=== PATIENT | male | born 1935 | race Asian ===

== ENCOUNTER → 2020-04-04 | Outpatient (CLI) | payer MEDICARE, OTHER ==
[~2020-04-04] MED LIST: ALLO100T PO; ASPI-999 PO; ATOR80TA76 PO; CIPR-225 PO; HYDR-3870 PO; ISOS120T9 PO; LOSA100T57 PO; METO50TA7 PO; MULT-35 PO; NIFE60TA11 PO; OMG1KC PO; PHEN-640 PO; RANO500T3 PO; TAMS0.4C2 PO; UBID1CAP53 PO
--- NOTE | 2020-04-04 14:36 | Diagnostic Imaging Report ---
Indication: Hematuria Findings: There are multiple adjacent stones in the right upper quadrant which may be within the renal pelvis and/or proximal ureter, the largest is the most proximal/superior of these stones measuring 7.8 mm in diameter. The bowel gas pattern unremarkable. Impression: Calcifications in the right upper quadrant, suspicious for urolithiasis, may be within the renal pelvis and/or proximal ureter. If symptomatic, consider CT as further evaluation. Dictated by: Dictated on workstation # [id number]
--- NOTE | 2020-04-04 14:42 | Diagnostic Imaging Report ---
PROCEDURE: CT abdomen and pelvis without contrast. TECHNIQUE: Multiple contiguous axial images were obtained through the abdomen and pelvis without the use of intravenous contrast. Auto Exposure Controls were utilized during the CT exam to meet ALARA standards for radiation dose reduction. INDICATION: Flank pain, hematuria. There are multiple stones in the proximal right ureter. There are 3 adjacent calculi at the level of the L3-L4 disc space. The most proximal of these has a long axis cephalocaudal 5.7 mm. The most distal has its maximal dimension in the transverse orientation of 6.5 mm. These result in mild proximal hydronephrosis and mild perinephric and periureteric edema. Punctate 1 mm left renal calculus is present. There are additional intrarenal stones in the right kidney, the largest in an upper pole calyx is a 2 to 3 mm. An exophytic nodule off the mid to lower 3rd of the right kidney is indeterminate, solid versus cystic 1.6 cm nonemergent sonographic correlation recommended. There is an exophytic cyst off the lower pole the left kidney. There is a cyst in the right hepatic lobe as well as lateral sector left lobe, the gallbladder negative. Spleen, adrenals and pancreas unremarkable. There is no bowel obstruction or viscus perforation no ascites, abscess, hematoma or acute fluid collection. There is no appendicitis or diverticulitis. IMPRESSION: 1. Bilateral nephrolithiasis, multiple prominent proximal right ureteral stones with only mild upstream hydronephrosis. Calculus dimensions above. 2. No other acute-appearing abnormality. 3. Bilateral renal cysts noted, likely right renal exophytic cyst present however does not appear clearly simple, nonemergent sonographic correlation recommended. Dictated by: Dictated on workstation # [id number]
== END ==
LOC: RAD 13:59
PROVIDERS: ATTEND Urology
DX: N13.2 Hydronephrosis with renal and ureteral calculous obstruction (principal); N28.1 Cyst of kidney, acquired; R31.9 Hematuria, unspecified
CPT/HCPCS: 74018; 74176

== ENCOUNTER 2020-04-25 05:45 | Outpatient (RCR) | payer MEDICARE ==
[~2020-04-25] VITALS: Ht 162.6 cm; Wt 71.8 kg
[2020-04-25] MEDS ORDERED: NIFE-24 PO (12:01)
[2020-04-25] MEDS ORDERED: ROSU40TA23 PO (12:01)
[2020-04-25] MEDS ORDERED: TMSL.4C PO (12:01)
[2020-04-25] MEDS ORDERED: MULT-1136 PO (12:01)
== END 2020-04-25 12:27 | disposition home or self-care (01) ==
LOC: PREOP 05:45
PROVIDERS: ATTEND Urology
DX: Z01.812 Encounter for preprocedural laboratory examination (principal); N20.1 Calculus of ureter

== ENCOUNTER → 2020-04-30 | Outpatient (CLI) | payer MEDICARE ==
[~2020-04-30] MED LIST changes: +MULT-1136 PO; +NIFE-24 PO; +ROSU40TA23 PO; +TMSL.4C PO
--- NOTE | 2020-04-30 14:53 | Diagnostic Imaging Report ---
INDICATION: Follow-up renal calculi. COMPARISON: 04/04/2020 FINDINGS: Single supine radiographic view of the abdomen was obtained and again demonstrates two separate calculi projecting over the right psoas muscle. These do appear to have partially migrated distally when compared to 04/04/2020. Calculi now project over the intervertebral disc space of L3-L4 and superior endplate of L4. This is in comparison to over the level of the L3 vertebral body previously. Additional right renal calculus is again identified. Small bowel loops are nondistended. There is no large collection of free intraperitoneal air. Moderate air and stool is noted scattered throughout the colon. IMPRESSION: 1. Slight interval distal migration of right ureteral calculi. 2. Right renal calculus. 3. Moderate colonic air and stool. Please correlate for constipation. Dictated by: Dictated on workstation # [id number]
== END ==
LOC: RAD 14:04
PROVIDERS: ATTEND Urology
DX: N20.2 Calculus of kidney with calculus of ureter (principal)
CPT/HCPCS: 74018

== ENCOUNTER 2020-05-08 06:03 | Day surgery (SDC) | payer MEDICARE ==
[2020-05-08] VITALS (9 sets, daily range): BP systolic 115–140; BP diastolic 75–89
[~2020-05-08] VITALS: Ht 162 cm; Wt 71.8 kg
[2020-05-08] MEDS ORDERED: cefTRIAXone FOR IV USE 1,000 MG in WATER (STERILE) FOR INJECTION 10 ML IV ONE (06:15)
[2020-05-08] MEDS: LACTATED RINGERS 1,000 ML IV PRN ×2 (06:47→07:40)
[2020-05-08] MEDS ORDERED: fentaNYL INJECTION 100 MCG/2 ML AMP ONE (06:56)
[2020-05-08] MEDS ORDERED: SEVOFLURANE (ULTANE) 15 ML INHAL SOLN ONE (06:56)
[2020-05-08] MEDS ORDERED: ONDANSETRON 4 MG/2 ML (SDV) Z0FRAN ONE (06:56)
[2020-05-08] MEDS ORDERED: KETOROLAC 30 MG/ML VIAL ONE (06:56)
[2020-05-08] MEDS ORDERED: LIDOCAINE PF 2% 5 ML (XYLOCAINE) VIAL ONE (06:56)
[2020-05-08] MEDS ORDERED: FUROSEMIDE 40 MG/4 ML INJ (LASIX) ONE (06:56)
[2020-05-08] MEDS ORDERED: proPOfol 200 MG/20 ML (DIPRIVAN) VIAL IV ONE (06:56)
--- NOTE | 2020-05-08 07:05 | Progress Note-Pre Operative ---
Pre-Operative Progress Note H&P Reviewed The H&P was reviewed, patient examined and no changes noted. Date Seen by Provider: May 08, 2020 Time Seen by Provider: 07:04 Date H&P Reviewed: May 08, 2020 Time H&P Reviewed: 07:05 Pre-Operative Diagnosis: RT URETERAL STONES ARMANDO YEE MD May 08, 2020 07:05
--- NOTE | 2020-05-08 07:16 | Progress Note-Post Operative ---
Post-Operative Progess Note Surgeon (s)/Vacuum Bottle Assembler (s) Surgeon ARMANDO YEE MD Vacuum Bottle Assembler: NONE Pre-Operative Diagnosis RT URETERAL STONES Post-Operative Diagnosis SAME Procedure & Operative Findings Date of Procedure 05/08/20 Procedure Performed/Findings RT ESWL Anesthesia Type GENERAL Estimated Blood Loss Estimated blood loss (mL): NONE Specimens/Packing Specimens Removed NONE Packing: NONE ARMANDO YEE MD May 08, 2020 07:16
--- NOTE | 2020-05-08 07:18 | Discharge Inst-Urology ---
Discharge Inst-Urology Reconcile Patient Problems Problems Reviewed?: Yes Final Diagnosis RT PROXIMAL URETERAL STONES Patient Instructions/Follow Up Plan/Assessment/Instructions Please make appointment to been seen in office next Thursday, KUB prior to it. KUB on way home Stay off ASA Post ESWL instructions Increase oral fluids for 48 hours and then as needed. Diet and Activity as tolerated. If questions or concerns contact your physician Or seek help at emergency department. ARMANDO YEE MD May 08, 2020 07:18
--- NOTE | 2020-05-08 07:25 | Diagnostic Imaging Report ---
INDICATION: Right flank pain KUB 6:37 AM There are 2 calculi in the right ureteral distribution one measuring 8 mm in diameter at the level of L3-L4 disc space and the other measuring 7 mm in diameter at the L4-L5 disc space level. Bowel gas pattern is normal. IMPRESSION: There are 2 right ureteral calculi. The more distal has migrated distally approximately 2 cm compared to 04/30/2020. Dictated by: Dictated on workstation # [id number]
[2020-05-08] MEDS ORDERED: GLYCOPYRROLATE 0.2 MG/ML (ROBINUL) 2 ML VIAL ONE (07:28)
[2020-05-08] MEDS ORDERED: ONDANSETRON 4 MG/2 ML (SDV) Z0FRAN IVP PRN (08:15)
[2020-05-08] MEDS ORDERED: morphine INJ 10 MG/ML 1ML (SYR OR VIAL) IVP ONE (08:15)
[2020-05-08] MEDS ORDERED: TRM50T PO (08:45)
[2020-05-08] MEDS ORDERED: NITR-65 PO (08:45)
[2020-05-08] MEDS ORDERED: TMSL.4C PO (08:45)
--- NOTE | 2020-05-08 09:59 | Diagnostic Imaging Report ---
EXAMINATION: Abdomen, 1 view. HISTORY: POST ESWL. COMPARISON: Abdominal radiograph 05/08/2020. FINDINGS: There is a 0.8 cm calcification which appears to have migrated cephalad now projecting over the expected location of the proximal ureter. Stable appearance of the 1.0 cm calculus within the mid right ureter compared to 05/08/2020. There is moderate amount of gas and stool throughout the colon. Nonobstructive bowel gas pattern. No radiopaque foreign body. Degenerative changes of the hips and spine. Osseous structures are otherwise intact. IMPRESSION: 1. Stable 1.0 cm mid right ureteral calculus. 2. Cephalad migration of the 0.8 cm right ureteral calculus now within the proximal right ureter. Dictated by: Dictated on workstation # [id number]
--- NOTE | 2020-05-08 10:58 | OPERATIVE REPORT ---
DATE OF SERVICE: 05/08/2020 PREOPERATIVE DIAGNOSIS: Right proximal ureteral stones. POSTOPERATIVE DIAGNOSIS: Right proximal ureteral stones. OPERATION PERFORMED: Right ESWL. SURGEON: Сергей Yee MD. ANESTHESIA: General. COMPLICATIONS: None. DESCRIPTION OF PROCEDURE: Under satisfactory general anesthesia, the patient in supine position on the ESWL table, we first localized the lower proximal right ureteral stone and delivered shocks at kV of 9 with a total of 3000 shocks. We wanted to concentrate on one stone at a time because of their size and hardness. The stone seemed to have fragmented well. The patient received 40 mg of Lasix and 15mg of Toradol IV at the end of the procedure. He tolerated the procedure and anesthesia well and was sent to recovery room in a stable condition. PLAN: We will see how he recovers from this one and then next week, we will bring him back for the more proximal ureteral stone. This was fully explained to the patient prior to surgery and his as well and postoperatively to his . Job ID: [id number] DocumentID: [id number] Dictated Date: 05/08/2020 07:42:51 Marine Pipefitter Helper Date: 05/08/2020 10:58:31 Dictated By: СЕРГЕЙ YEE MD MTDD
--- NOTE | 2020-05-11 10:41 | Anesthesia-General Post-Op ---
General Patient Condition Mental Status/LOC: Same as Preop Cardiovascular: Satisfactory Nausea/Vomiting: Absent Respiratory: Satisfactory Pain: Controlled Complications: Absent Post Op Complications Complications None Follow Up Care/Instructions Patient Instructions None needed. Anesthesia/Patient Condition Patient Condition Post-dated progress note: Patient was seen on 05-08-20 at 0845 and he was doing well, no complaints, stable vital signs, no apparent adverse anesthesia problems. PRASANNA MCNEIL DO May 11, 2020 10:41
== END 2020-05-08 09:47 | disposition home or self-care (01) ==
LOC: SDC 06:03
PROVIDERS: ATTEND Urology
DX: N20.1 Calculus of ureter (principal); I10 Essential (primary) hypertension; I25.10 Atherosclerotic heart disease of native coronary artery without angina pectoris; M10.9 Gout, unspecified; E78.00 Pure hypercholesterolemia, unspecified; Z79.899 Other long term (current) drug therapy; Z91.030 Bee allergy status
CPT/HCPCS: 74018; 87081

== ENCOUNTER 2020-05-10 05:48 | Outpatient (RCR) | payer MEDICARE ==
[~2020-05-10 05:48] MED LIST changes: +NITR-65 PO; +TRM50T PO
[2020-05-15] MEDS ORDERED: NITR-65 PO (09:13)
== END 2020-05-14 14:37 | disposition home or self-care (01) ==
LOC: PREOP 05:48
PROVIDERS: ATTEND Urology
DX: Z01.818 Encounter for other preprocedural examination (principal)

== ENCOUNTER → 2020-05-14 | Outpatient (CLI) | payer MEDICARE ==
--- NOTE | 2020-05-14 12:48 | Diagnostic Imaging Report ---
Indication: Followup right-sided lithotripsy. Time of exam: 12:03 PM Correlation is made with prior radiograph from 05/08/2020. There has been migration of previously noted calculi in the upper and mid urinary tracts on today's study. Calculi now overlie the right sacral ala. There appear to be several calcific densities clustered together overlying the right sacral ala. Bowel gas pattern is unremarkable. There is moderate stool in the right colon. Impression: There are several calculi or calcific fragments of the ureter overlying the right sacral ala. Dictated by: Dictated on workstation # [id number]
== END ==
LOC: RAD 11:51
PROVIDERS: ATTEND Urology
DX: N20.1 Calculus of ureter (principal)
CPT/HCPCS: 74018

== ENCOUNTER 2020-05-15 06:00 | Day surgery (SDC) | payer MEDICARE ==
[2020-05-15] VITALS (9 sets, daily range): BP systolic 103–138; BP diastolic 70–96
[~2020-05-15] VITALS: Ht 157.5 cm; Wt 71.8 kg
[2020-05-15] MEDS: LACTATED RINGERS 1,000 ML IV PRN ×2 (06:15→07:30)
[2020-05-15] MEDS ORDERED: cefTRIAXone FOR IV USE 1,000 MG in WATER (STERILE) FOR INJECTION 10 ML IV ONE (06:15)
[2020-05-15] MEDS ORDERED: ONDANSETRON 4 MG/2 ML (SDV) Z0FRAN ONE (06:50)
[2020-05-15] MEDS ORDERED: LIDOCAINE PF 2% 5 ML (XYLOCAINE) VIAL ONE (06:50)
[2020-05-15] MEDS ORDERED: proPOfol 200 MG/20 ML (DIPRIVAN) VIAL IV ONE ×2 (06:50→07:29)
[2020-05-15] MEDS ORDERED: SEVOFLURANE (ULTANE) 15 ML INHAL SOLN ONE (06:50)
[2020-05-15] MEDS ORDERED: fentaNYL INJECTION 100 MCG/2 ML AMP ONE (06:55)
--- NOTE | 2020-05-15 07:04 | Progress Note-Pre Operative ---
Pre-Operative Progress Note H&P Reviewed The H&P was reviewed, patient examined and no changes noted. Date Seen by Provider: May 15, 2020 Time Seen by Provider: 07:04 Date H&P Reviewed: May 15, 2020 Time H&P Reviewed: 07:04 Pre-Operative Diagnosis: RT MID URETERAL STONES ARMANDO YEE MD May 15, 2020 07:04
--- NOTE | 2020-05-15 07:27 | Discharge Inst-Urology ---
Discharge Inst-Urology Reconcile Patient Problems Problems Reviewed?: Yes Final Diagnosis LT MID URETERAL STONES Patient Instructions/Follow Up Plan/Assessment/Instructions Please make appointment to been seen in office Sunday 05/28, KUB prior to it. KUB on way home Stay off ASA Post ESWL instructions Increase oral fluids for 48 hours and then as needed. Diet and Activity as tolerated. If questions or concerns contact your physician Or seek help at emergency department. ARMANDO YEE MD May 15, 2020 07:27
--- NOTE | 2020-05-15 07:28 | Progress Note-Post Operative ---
Post-Operative Progess Note Surgeon (s)/Deputy [place] Marshal (s) Surgeon ARMANDO YEE MD Deputy [employer] [place] Marshal: NONE Pre-Operative Diagnosis RT MID URETERAL STONES Post-Operative Diagnosis SAME Procedure & Operative Findings Date of Procedure 05/15/20 Procedure Performed/Findings RT ESWL Anesthesia Type GENERAL Estimated Blood Loss Estimated blood loss (mL): NONE Specimens/Packing Specimens Removed NONE Packing: NONE ARMANDO YEE MD May 15, 2020 07:28
[2020-05-15] MEDS ORDERED: GLYCOPYRROLATE 0.2 MG/ML (ROBINUL) 2 ML VIAL ONE (07:49)
[2020-05-15] MEDS ORDERED: KETOROLAC 30 MG/ML VIAL ONE (07:49)
[2020-05-15] MEDS ORDERED: FUROSEMIDE 40 MG/4 ML INJ (LASIX) ONE (07:49)
[2020-05-15] MEDS ORDERED: ONDANSETRON 4 MG/2 ML (SDV) Z0FRAN IVP PRN (08:15)
[2020-05-15] MEDS ORDERED: HYDROmorphone 2 MG/ML VIAL (DILAUDID) IV ONE (08:15)
--- NOTE | 2020-05-15 08:36 | Diagnostic Imaging Report ---
INDICATION: Right-sided extracorporeal shock wave lithotripsy. TECHNIQUE: Single supine view of the abdomen 6:53 AM CORRELATION STUDY: 05/14/2020 FINDINGS: Moderate amount of overlying bowel gas and stool obscuring detail. Small calcification in the right upper quadrant likely over the renal silhouette. Definitive calcification along the expected course of either ureter is not suggested. Vascular calcification is present. IMPRESSION: 1. Calcification of the right renal silhouette. No definitive calcification along the expected course of either ureter. If further assessment is desired, renal colic CT imaging recommended. Dictated by: Dictated on workstation # [id number]
--- NOTE | 2020-05-15 08:38 | Anesthesia-General Post-Op ---
General Patient Condition Mental Status/LOC: Same as Preop Cardiovascular: Satisfactory Nausea/Vomiting: Absent Respiratory: Satisfactory Pain: Controlled Complications: Absent Post Op Complications Complications None Follow Up Care/Instructions Patient Instructions None needed. Anesthesia/Patient Condition Patient Condition Patient is doing well, no complaints, stable vital signs, no apparent adverse anesthesia problems. No complications reported per nursing. D/C home per [facility] Criteria: Yes TANI BECKFORD CRNA May 15, 2020 08:38
[2020-05-15] MEDS ORDERED: NITR-65 PO (09:13)
--- NOTE | 2020-05-15 09:27 | Diagnostic Imaging Report ---
INDICATION: POST ESWL. TECHNIQUE: Single supine view of the abdomen 9:02 AM CORRELATION STUDY: 05/15/2020 FINDINGS: Scattered gas-filled loops of bowel are present obscuring detail. A few small calcifications project over the right renal silhouette. Calcification of the right sacral ala likely vascular in etiology. Definitive calcification along expected course of the right ureter is not demonstrated. IMPRESSION: 1. Calcification projecting over the right renal silhouette. No definitive calcification over the expected course of the right ureter. Dictated by: Dictated on workstation # [id number]
--- NOTE | 2020-05-15 11:36 | OPERATIVE REPORT ---
DATE OF SERVICE: 05/15/2020 PREOPERATIVE DIAGNOSIS: Right mid ureteral stones. POSTOPERATIVE DIAGNOSIS: Right mid ureteral stones. OPERATION PERFORMED: Right ESWL. SURGEON: Сергей Yee MD. ANESTHESIA: General. COMPLICATIONS: None. DESCRIPTION OF PROCEDURE: Under satisfactory general anesthesia, the patient in supine position on the ESWL table, we first localized the more proximal right mid ureteral stone and delivered shocks at kV of 11. A total of 2500 shocks fragmented the stone very nicely and we could see some fragments moving down adjoining the lower stone. Then, we moved on the more distal stone and delivered 1000 shocks for a total of 3500 shocks at kV of 11. The patient received 40 mg of Lasix and 15 mg of Toradol IV at the end of the procedure. He tolerated the procedure and anesthesia well and was sent to the recovery room in a stable condition. Job ID: [id number] DocumentID: [id number] Dictated Date: 05/15/2020 07:49:48 Side Stapler Date: 05/15/2020 11:35:54 Dictated By: СЕРГЕЙ YEE MD
== END 2020-05-15 09:50 | disposition home or self-care (01) ==
LOC: SDC 06:00
PROVIDERS: ATTEND Urology
DX: N20.1 Calculus of ureter (principal); E78.00 Pure hypercholesterolemia, unspecified; I25.10 Atherosclerotic heart disease of native coronary artery without angina pectoris; M10.9 Gout, unspecified; Z79.899 Other long term (current) drug therapy; Z91.030 Bee allergy status; Z20.828 Contact with and (suspected) exposure to other viral communicable diseases
CPT/HCPCS: 50590; 74018; 87081; U0002; 87635

== ENCOUNTER → 2020-05-25 | Outpatient (CLI) | payer MEDICARE ==
--- NOTE | 2020-05-25 09:46 | Diagnostic Imaging Report ---
INDICATION: Ureteral calculus Portable supine image of the abdomen is obtained with comparison made to study of 05/15/2020. Evaluation for renal stones is limited due to overlying colonic stool however punctate stone is seen in the central right kidney with possible tiny stone in the lower pole region of the right kidney. No definite calculus seen along the course of either ureter. There are prostatic calcifications with probable phleboliths on the right. IMPRESSION: Residual punctate stones in the right kidney without definite calculus seen along the course of either ureter. Dictated by: Dictated on workstation # [id number]
== END ==
LOC: RAD 09:09
PROVIDERS: ATTEND Urology
DX: N20.0 Calculus of kidney (principal)
CPT/HCPCS: 74018

== ENCOUNTER → 2021-02-05 | Outpatient (CLI) | payer MEDICARE ==
--- NOTE | 2021-02-05 12:21 | Diagnostic Imaging Report ---
PROCEDURE: CT abdomen and pelvis without contrast. TECHNIQUE: Multiple contiguous axial images were obtained through the abdomen and pelvis without the use of intravenous contrast. Auto Exposure Controls were utilized during the CT exam to meet ALARA standards for radiation dose reduction. INDICATION: Prostate cancer. COMPARISON: 04/04/2020. FINDINGS: The included portions of the lung bases show chronic bronchiectasis with atelectasis of the right lower lobe. Note is also made of advanced calcified coronary atherosclerosis and aneurysmal dilatation of the ascending thoracic aorta. The descending thoracic aorta measures 4.[address] ABDOMEN: A normal appendix is identified. The small bowel loops are nondistended. Punctate nonobstructive bilateral renal calculi are identified. No ureteral calculi are seen. Additionally, there is no hydroureteronephrosis or other evidence of obstruction. The adrenal glands, spleen, and pancreas have an unremarkable noncontrast CT appearance. Multiple hypodensities are noted scattered throughout the hepatic parenchyma. Although incompletely characterized on this noncontrast study, these are stable when compared to 04/04/2020. No loculated fluid collection, free fluid, or free air is seen within the abdomen. No abnormal mesenteric or retroperitoneal adenopathy is identified. Note is made of moderate diffuse calcified aortic and arterial atherosclerosis. The osseous structures show no acute abnormalities. CT PELVIS: The urinary bladder is unopacified. No calculi are seen within the urinary bladder. There is no loculated fluid collection, free fluid, or free air. No abnormal lymph nodes are identified. The osseous structures show no acute abnormalities. IMPRESSION: 1. No evidence of metastatic or malignant disease within the abdomen or pelvis. 2. Bilateral nonobstructive renal calculi. 3. Multiple hepatic hypodensities. Again, although these are incompletely characterized on this noncontrast exam, these do appear to be stable when compared to 04/04/2020. Cysts are favored. 4. Aneurysmal dilatation of the ascending thoracic aorta. 5. Advanced calcified coronary and aortic atherosclerosis. Dictated by: Dictated on workstation # [id number]
--- NOTE | 2021-02-05 14:27 | Diagnostic Imaging Report ---
Whole body bone scan. Indication: Prostate carcinoma This study was performed following administration of 26.5 mCi of 99 technetium MDP. Anterior and posterior whole-body images were obtained. There are no prior nuclear medicine studies available for comparison. The CT abdomen and pelvis exam performed in conjunction with this study failed to show any sign of metastatic disease. There is generalized distribution of the radiotracer throughout the osseous structures. There is no focal area of increased or decreased activity to suggest metastatic disease or an acute abnormality. There are generalized areas of uptake involving the shoulder hip knee and ankle joints. There is also some increased activity in the lower cervical spine on the right. These findings are felt to be degenerative in nature. Both kidneys do show excretion of radiotracer Impression: There is no evidence for metastatic disease or for an acute bony abnormality. Dictated by: Dictated on workstation # [id number]
== END ==
LOC: CARD 11:00
PROVIDERS: ATTEND Urology
DX: C61 Malignant neoplasm of prostate (principal); N20.0 Calculus of kidney; I71.2 Thoracic aortic aneurysm, without rupture; I25.10 Atherosclerotic heart disease of native coronary artery without angina pectoris
CPT/HCPCS: 74176; 78306; A9503

== ENCOUNTER 2021-02-18 09:39 | Outpatient (RCR) | payer MEDICARE ==
[2021-04-02] MEDS ORDERED: ASPI-999 PO (11:48)
[2021-04-09] MEDS ORDERED: CIPR-225 PO ×2 (09:32→09:33)
== END 2021-04-19 | disposition home or self-care (01) ==
LOC: ONC 09:39
PROVIDERS: ATTEND Radiology Radiation Oncology
DX: C61 Malignant neoplasm of prostate (principal); E78.00 Pure hypercholesterolemia, unspecified; I10 Essential (primary) hypertension; I25.10 Atherosclerotic heart disease of native coronary artery without angina pectoris; Z98.890 Other specified postprocedural states
CPT/HCPCS: 99204; 99214

== ENCOUNTER 2021-04-02 10:54 | Outpatient (CLI) | payer MEDICARE ==
[~2021-04-02] VITALS: Ht 152 cm; Wt 69.0 kg
[2021-04-02 11:13] VITALS: BP 108/67
[2021-04-02] MEDS ORDERED: ASPI-999 PO (11:48)
== END 2021-04-04 13:15 | disposition home or self-care (01) ==
LOC: SDC 10:54 → PREOP 10:54
DX: Z01.818 Encounter for other preprocedural examination (principal)
CPT/HCPCS: 87081

== ENCOUNTER 2021-04-09 07:47 | Day surgery (SDC) | payer MEDICARE ==
[2021-04-09] VITALS (10 sets, daily range): BP systolic 100–140; BP diastolic 66–93
[~2021-04-09] VITALS: Ht 152 cm; Wt 69.0 kg
[2021-04-09] MEDS ORDERED: LACTATED RINGERS 1,000 ML IV PRN (08:00)
[2021-04-09] MEDS ORDERED: cefTRIAXone 1 GM PRE-MIX 50 ML IV ONE (08:00)
--- NOTE | 2021-04-09 09:07 | Progress Note-Pre Operative ---
Pre-Operative Progress Note H&P Reviewed The H&P was reviewed, patient examined and no changes noted. Date Seen by Provider: Apr 09, 2021 Time Seen by Provider: 09:07 Date H&P Reviewed: Apr 09, 2021 Time H&P Reviewed: 09:07 Pre-Operative Diagnosis: ARMANDO ANDERS MD Apr 09, 2021 09:07
--- NOTE | 2021-04-09 09:09 | Progress Note-Post Operative ---
Post-Operative Progess Note Surgeon (s)/Rn Employee Health (s) Surgeon ARMANDO YEE MD Rn Employee Health: NONE Pre-Operative Diagnosis CAP Post-Operative Diagnosis SAME Procedure & Operative Findings Date of Procedure 04/09/21 Procedure Performed/Findings PLACEMENT OF SPACE OAR Anesthesia Type GENERAL Estimated Blood Loss Estimated blood loss (mL): NONE Specimens/Packing Specimens Removed NONE Packing: NONE ARMANDO YEE MD Apr 09, 2021 09:09
--- NOTE | 2021-04-09 09:13 | Discharge Inst-Urology ---
Discharge Inst-Urology Reconcile Patient Problems Problems Reviewed?: Yes Final Diagnosis CAP Patient Instructions/Follow Up Plan/Assessment/Instructions Please make appointment to been seen in office in 4 weeks. Rest for 48 hours In 48 hours, if no bleeding, may resume ASA Increase oral fluids for 48 hours and then as needed. Diet as tolerated. If questions or concerns contact your physician Or seek help at emergency department. ARMANDO YEE MD Apr 09, 2021 09:13
[2021-04-09] MEDS ORDERED: proPOfol 200 MG/20 ML (DIPRIVAN) VIAL IV ONE (09:23)
[2021-04-09] MEDS ORDERED: ONDANSETRON 4 MG/2 ML (SDV) Z0FRAN ONE (09:23)
[2021-04-09] MEDS ORDERED: SEVOFLURANE (ULTANE) 15 ML INHAL SOLN ONE (09:23)
[2021-04-09] MEDS ORDERED: LIDOCAINE PF 2% 5 ML (XYLOCAINE) VIAL ONE (09:23)
[2021-04-09] MEDS ORDERED: fentaNYL INJ 100 MCG/2 ML AMP ONE (09:23)
[2021-04-09] MEDS ORDERED: CIPR-225 PO ×2 (09:32→09:33)
[2021-04-09] MEDS ORDERED: KETOROLAC 30 MG/ML VIAL ONE (09:46)
[2021-04-09] MEDS ORDERED: ONDANSETRON 4 MG/2 ML (SDV) Z0FRAN IVP PRN (10:00)
[2021-04-09] MEDS ORDERED: HYDROmorphone 2 MG/ML VIAL (DILAUDID) IV ONE (10:00)
--- NOTE | 2021-04-09 11:59 | Anesthesia-General Post-Op ---
General Patient Condition Mental Status/LOC: Same as Preop Cardiovascular: Satisfactory Nausea/Vomiting: Absent Respiratory: Satisfactory Pain: Controlled Complications: Absent Post Op Complications Complications None Follow Up Care/Instructions Patient Instructions None needed. Anesthesia/Patient Condition Patient Condition Patient is doing well, no complaints, stable vital signs, no apparent adverse anesthesia problems. No complications reported per nursing. D/C home per [facility] Criteria: Yes TANI BECKFORD CRNA Apr 09, 2021 11:59
== END 2021-04-09 12:00 ==
LOC: SDC 07:47
PROVIDERS: ATTEND Urology
DX: C61 Malignant neoplasm of prostate (principal); I10 Essential (primary) hypertension; I25.10 Atherosclerotic heart disease of native coronary artery without angina pectoris; E66.9 Obesity, unspecified; E78.00 Pure hypercholesterolemia, unspecified; Z98.890 Other specified postprocedural states; Z79.899 Other long term (current) drug therapy; Z79.82 Long term (current) use of aspirin; Z68.31 Body mass index [BMI] 31.0-31.9, adult
CPT/HCPCS: 55874; C1889

== ENCOUNTER → 2021-05-20 | Outpatient (RCR) | payer MEDICARE | END | disposition home or self-care (01) | LOC: ONC 04-22 10:02 | PROVIDERS: ATTEND Radiology Radiation Oncology | DX: Z51.0 Encounter for antineoplastic radiation therapy (principal); C61 Malignant neoplasm of prostate | CPT/HCPCS: 77300; 77301; 77334; 77336; 77338; 77385 ==

== ENCOUNTER 2021-06-03 13:24 | Outpatient (RCR) | payer MEDICARE | END 2021-06-17 | disposition home or self-care (01) | LOC: ONC 13:24 | PROVIDERS: ATTEND Radiology Radiation Oncology | DX: Z51.0 Encounter for antineoplastic radiation therapy (principal); C61 Malignant neoplasm of prostate | CPT/HCPCS: 77385; G0463; 77336 ==

== ENCOUNTER → 2021-07-18 | Outpatient (RCR) | payer MEDICARE | LOC: ONC 10:21 | PROVIDERS: ATTEND Radiology Radiation Oncology | DX: C61 Malignant neoplasm of prostate (principal) | CPT/HCPCS: 99213 ==

== ENCOUNTER 2022-04-29 09:19 | Outpatient (RCR) | payer MEDICARE | END 2022-05-20 | disposition home or self-care (01) | LOC: ONC 09:19 | PROVIDERS: ATTEND Radiology Radiation Oncology | DX: C61 Malignant neoplasm of prostate (principal) | CPT/HCPCS: 36415; 84153 ==

== ENCOUNTER → 2022-10-17 | Outpatient (RCR) | payer MEDICARE ==
[~2022-10-17] MED LIST changes: -LOSA100T57 PO; +LOSA100T58 PO
== END ==
LOC: ONC 09:54
PROVIDERS: ATTEND Radiology Radiation Oncology
DX: C61 Malignant neoplasm of prostate (principal)
CPT/HCPCS: 36415; 84153

== ENCOUNTER → 2023-03-03 | Outpatient (CLI) | payer MEDICARE ==
[2023-03-03 10:26] LABS: BILIRUBIN,URINE NEGATIVE (NEGATIVE); CLARITY,URINE CLEAR; COLOR,URINE YELLOW; GLUCOSE, URINE (UA) NEGATIVE (NEGATIVE); KETONES,URINE NEGATIVE (NEGATIVE); NITRITE,URINE NEGATIVE (NEGATIVE); PROTEIN,URINE NEGATIVE (NEGATIVE)
[2023-03-03 10:27] LABS: BACTERIA,URINE NEGATIVE /HPF; LEUKOCYTE ESTERASE ,URINE NEGATIVE (NEGATIVE); SQUAMOUS EPITHELIAL CELL,UR 0-2 /HPF
--- NOTE | 2023-03-03 11:56 | Diagnostic Imaging Report ---
INDICATION: PrimaryDx N20.0 CALCULUS OF KIDNEY TECHNIQUE: Multiple real-time grayscale sonographic images were obtained of the kidneys. CORRELATION: None FINDINGS: RIGHT KIDNEY: 9 x 4.5 x 6.3 cm. LEFT KIDNEY: 11.1 x 4.9 x 5.7 cm. Cysts are present in both kidneys. Superior pole right kidney, 1.6 x 2.4 x 1.5 cm. Inferior pole left kidney 2.9 x 2.3 x 2.3 cm. No definitive calcification or hydronephrosis. URINARY BLADDER: There is presence of bilateral ureteral jets. Urinary bladder appearing unremarkable. Prevoid Volume: 239 mL. IMPRESSION: 1. Bilateral renal cysts. Dictated by: Dictated on workstation # [id number]
--- NOTE | 2023-03-03 15:08 | Diagnostic Imaging Report ---
ABDOMEN/KUB 1VIEW INDICATION: Calculus of kidney COMPARISON: CT abdomen pelvis of 02/05/2021. TECHNIQUE: AP view(s) of the abdomen. FINDINGS: No radiographically apparent renal stones. No calcifications along the expected course of ureters. Nonobstructive bowel gas pattern. Mild degenerative changes in the lower lumbar spine. IMPRESSION: No radiographically apparent urinary tract stones. Dictated by: Dictated on workstation # [id number]
== END ==
LOC: RAD 09:16
PROVIDERS: ATTEND Specialist
DX: N28.1 Cyst of kidney, acquired (principal)
CPT/HCPCS: 74018; 76770; 81000